=== PATIENT | male | born 1955 | race Caucasian/White ===

== ENCOUNTER 2017-01-07 02:59 | Observation (INO) | payer OTHER ==
--- NOTE | ~2017-01-07 | HP ---
History And Physical [place] [id number] [facility] [place]. [address] NAME: DUSTY SMITH : 59 STATUS : ADM Brian PAT#: [id number] AGE: 61 ADM/REG DATE : 01/07/17 MR#: [id number] REPORT SERV DATE: 01/07/17 DICTATED BY: MELISSA BERG DATE: 01/07/17 REPORT STATUS : Draft TRANSCRIBED BY: MODBernabe DATE: 01/07/17 DATE OF ADMISSION: 01/07/2017 CHIEF COMPLAINT: Exertional chest pain. HISTORY OF PRESENT ILLNESS: A very pleasant 61-year-old white male with no known history of CAD, presents to our facility complaining of two months of worsening exertional chest pain such as walking approximately 200 yards. He thought his symptoms were initially his back and an MRI has been performed in [place], [place] and it is negative per the patient's report. He states the chest pain occurs more frequently with less activity with associated shortness of breath and diaphoresis. He denies any nausea, dizziness, or belching. On January 06, around 2300 hours, he again experienced the chest pain at this time at rest that radiated towards his back and he describes the chest pain as a pressure tightness and ache. At its most intense, two weeks ago, his chest pain was a 9/10. At the time of interview in the [facility], he rates it a 2/10. The episodes last approximately 30 minutes in duration and resolve with rest. The patient denies any personal history of myocardial infarction, stroke, DVT, or pulmonary embolus. The patient denies any recent fever or chills. Denies palpitations. No syncopal episodes. Denies PND or orthopnea. Of note, the patient was previously on pravastatin several months or years ago and it was discontinued seemingly for elevated liver enzymes. The patient denies any bleeding issues and no planned upcoming surgeries, but does have an upcoming colonoscopy. PAST MEDICAL HISTORY: 1. Previously dyslipidemic, now off pravastatin questionably secondary to elevated LFTs. 2. Denies hypertension or diabetes. PAST SURGICAL HISTORY: Right knee surgery and left shoulder surgery. SOCIAL HISTORY: He is with three children. 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 He does not have a structured exercise routine. He denies tobacco or illicits. He consumes two drinks twice weekly. FAMILY HISTORY: No embolic events reported in first-degree relatives. Father of cancer at 78. Mother with valve repair at the age of 85. REVIEW OF SYSTEMS: A fourteen-point review of systems performed, significant for HPI including snores per report with no formal sleep study. Otherwise, complete review of systems obtained and negative. ALLERGIES: NO KNOWN DRUG ALLERGIES. History And Physical [address] [address] NAME: DUSTY SMITH : 59 STATUS : ADM Brian PAT#: [id number] AGE: 61 ADM/REG DATE : 01/07/17 MR#: [id number] REPORT SERV DATE: 01/07/17 DICTATED BY: MELISSA BERG DATE: 01/07/17 REPORT STATUS : Draft TRANSCRIBED BY: SAM DATE: 01/07/17 HOME MEDICINES: Aspirin 325, inconsistently, Visine p.r.n., Advil p.r.n., Centrum or multivitamin daily, Aleve p.r.n., fish oil 1000 mg daily, CoQ10 daily, and vitamin D daily. PHYSICAL EXAMINATION: VITAL SIGNS: Bilateral blood pressures on arrival, right 147/92, left 152/98, this morning 146/92, pulse 76, respirations 16, temperature 97.4, O2 saturation 95% on room air. Height 5 feet 11 inches, weight 228 pounds. BMI of 32. GENERAL: Cooperative, in no apparent distress. HEENT: Pupils 2 mm, sclera nonicteric. Nares patent. Moist mucous membranes. No xanthelasma. NECK: Trachea midline, no thyromegaly. No JVD. No bruits. LYMPH: No cervical lymphadenopathy. No supraclavicular lymphadenopathy. RESPIRATORY: Unlabored respirations. Breath sounds clear bilaterally to posterior auscultation. No wheezes or rhonchi. CARDIOVASCULAR: Regular rate. No murmur, rub or gallop appreciated. EXTREMITIES: Without edema. Pulses 2+ bilaterally. ABDOMEN: Soft, nontender, nondistended, normal bowel sounds auscultated throughout. No organomegaly. SKIN: Warm, dry extremities. No pallor, or cyanosis. PSYCHIATRIC: Appropriate affect. Alert, oriented x3. LABORATORY DATA: Troponin 0.30 and 0.28, potassium 4.0, BUN 20, creatinine 1.10, glucose 104, magnesium 2.1. WBC 10.1, hemoglobin 17.2, hematocrit 47.7, and platelet count 321,000. D-dimer 0.40. EKG, sinus rhythm. ASSESSMENT AND PLAN: 1. Exertional chest pain. The patient has been observed in the CPOU with mildly elevated troponins of 0.30 and 0.28 with a low-level chest pain rated at 2/10. We will add Nitro paste and hold the patient n.p.o. for now. We will discuss with rounding physician whether any cardiac testing is warranted given his credible or his compelling history and mildly elevated troponins versus cardiac cath today. Further recommendations forthcoming. 2. Elevated blood pressure. We will monitor blood pressure. Continue addition of antihypertensive at discharge as warranted. 3. Unknown cholesterol status. We will check a fasting lipid panel and a liver panel. 4. Snores. Recommend outpatient sleep study for sleep apnea. ЮЛИЯ/SAM Melissa Berg, MSN, SPECIAL TECH[employer]ICAL OPERATIONS OFFICER-BC History And Physical [address] [address] NAME: DUSTY SMITH : 59 STATUS : ADM Brian PAT#: [id number] AGE: 61 ADM/REG DATE : 01/07/17 MR#: [id number] REPORT SERV DATE: 01/07/17 DICTATED BY: MELISSA BERG DATE: 01/07/17 REPORT STATUS : Draft TRANSCRIBED BY: MODL DATE: 01/07/17 / [id number] CC: Melissa Berg, MSN, SPECIAL TECHNICAL OPERATIONS OFFICER-BC TERESSA DUARTE
[2017-01-07 01:50] LABS: BASOPHILS 0.5 %; BASOPHILS ABSOLUTE 0.05 10/3/uL (0.0-0.16); EOSINOPHILS 2.9 %; EOSINOPHILS ABSOLUTE 0.29 10/3/uL (0.0-0.53); HEMATOCRIT 47.7 % (40.0-51.0); HEMOGLOBIN 17.2 g/dL (13.6-17.8); IMMATURE GRANULOCYTES 0.3 %; IMMATURE GRANULOCYTES ABSOLUTE 0.03 10/3/uL (0.0-0.11); LYMPHOCYTES 24.7 %; LYMPHOCYTES ABSOLUTE 2.48 10/3/uL (0.67-4.30); MEAN CORPUS HGB CONC 36.1 g/dL (32.0-36.0); MEAN CORPUSCULAR HEMOGLOB 32.5 pg (26.0-34.0); MEAN PLATELET VOLUME 9.9 fL (9.2-13.0); MONOCYTES 13.6 %; MONOCYTES ABSOLUTE 1.37 10/3/uL (0.21-1.20); NEUTROPHILS ABSOLUTE 5.83 10/3/uL (2.02-8.40); PLATELET COUNT 321 10/3/uL (150-400); RBC DISTRIBUTION WIDTH 12.4 % (12.0-16.0); WHITE BLOOD CELLS 10.1 10/3/uL (4.5-10.5)
[2017-01-07 01:53] LABS: ER CBC TAT 0 Hrs 08 MinsNP; MANUAL DIFF NO %
[2017-01-07 02:06] LABS: PARTIAL THROMBO TIME 27.5 SEC (22.5-37.2)
[2017-01-07 02:14] LABS: BUN (BLOOD UREA NITROGEN) 20 MG/DL (6-23); CALCIUM, SERUM 8.9 MG/DL (8.5-10.4); CHLORIDE, SERUM 105 MMOL/L (96-112); CO2 (CARBON DIOXIDE) 25 MMOL/L (24-34); GFR AFRICAN AMERICAN 85 ML/MIN (>=60); GFR NON AFRICAN AMERICAN 73 ML/MIN (>=60); GLUCOSE, SERUM 104 MG/DL (60-99); SODIUM, SERUM 140 MMOL/L (135-148)
[2017-01-07 02:16] LABS: CHEST PAIN PROFILE TAT 0 Hrs 31 Mins
[2017-01-07] MEDS ORDERED: CENTRUM PO (04:05)
[2017-01-07] MEDS ORDERED: VITAMIN D1000 UNI1 PO (04:07)
[2017-01-07] MEDS ORDERED: FISH-EPA1000 MG PO (04:07)
[2017-01-07] MEDS ORDERED: COQ-10 PO (04:09)
[2017-01-07] MEDS ORDERED: VITAMIN D PO (04:10)
[2017-01-07] MEDS ORDERED: ASAB PO (04:11)
[2017-01-07] MEDS ORDERED: ADVIL PO (04:12)
[2017-01-07] MEDS ORDERED: ALEVE220 MG PO (04:12)
[2017-01-07] MEDS ORDERED: VISINE TEARS15 ML OPH (04:13)
[2017-01-07 08:16] LABS: TROPONIN I 0.28 NG/ML (<0.05)
[2017-01-07 10:50] LABS: ALBUMIN 3.5 G/DL (3.5-5.0); ALKALINE PHOSPHATASE 105 U/L (45-117); CHOLESTEROL 170 MG/DL (< 200); HDL CHOLESTEROL 42 MG/DL (> 39); LDL CHOLESTEROL 107 MG/DL (< 130); NON-HDL CHOLESTEROL 128 MG/DL (< 160); SGOT(AST) 25 U/L (5-40); SGPT(ALT) 50 U/L (5-65); TOTAL BILIRUBIN 0.4 MG/DL (0-1.2); TOTAL PROTEIN 6.7 G/DL (6.0-8.5); TRIGLYCERIDE 105 MG/DL (< 150)
[2017-01-07 10:54] LABS: DIRECT BILIRUBIN < 0.1 MG/DL (0.0-0.4); INDIRECT BILIRUBIN(NOT ORDER) 0.3 MG/DL (0.1-0.9)
[2017-01-08 05:43] LABS: BASOPHILS 0.5 %; BASOPHILS ABSOLUTE 0.04 10/3/uL (0.0-0.16); EOSINOPHILS 2.7 %; EOSINOPHILS ABSOLUTE 0.23 10/3/uL (0.0-0.53); HEMATOCRIT 45.8 % (40.0-51.0); HEMOGLOBIN 16.2 g/dL (13.6-17.8); IMMATURE GRANULOCYTES 0.2 %; IMMATURE GRANULOCYTES ABSOLUTE 0.02 10/3/uL (0.0-0.11); LYMPHOCYTES 28.5 %; LYMPHOCYTES ABSOLUTE 2.42 10/3/uL (0.67-4.30); MEAN CORPUS HGB CONC 35.4 g/dL (32.0-36.0); MEAN CORPUSCULAR HEMOGLOB 31.8 pg (26.0-34.0); MEAN PLATELET VOLUME 9.9 fL (9.2-13.0); MONOCYTES ABSOLUTE 1.02 10/3/uL (0.21-1.20); NEUTROPHILS 56.1 %; NEUTROPHILS ABSOLUTE 4.75 10/3/uL (2.02-8.40); PLATELET COUNT 302 10/3/uL (150-400); RBC DISTRIBUTION WIDTH 12.6 % (12.0-16.0); RED CELL COUNT 5.09 10/6/uL (4.7-6.1); WHITE BLOOD CELLS 8.5 10/3/uL (4.5-10.5)
[2017-01-08 05:48] LABS: MANUAL DIFF NO %
[2017-01-08 05:56] LABS: BUN (BLOOD UREA NITROGEN) 17 MG/DL (6-23); CALCIUM, SERUM 8.7 MG/DL (8.5-10.4); CHLORIDE, SERUM 108 MMOL/L (96-112); CO2 (CARBON DIOXIDE) 25 MMOL/L (24-34); CREATININE 0.91 MG/DL (0.70-1.30); GFR AFRICAN AMERICAN 107 ML/MIN (>=60); GFR NON AFRICAN AMERICAN 92 ML/MIN (>=60); GLUCOSE, SERUM 93 MG/DL (60-99); POTASSIUM, SERUM 4.1 MMOL/L (3.5-5.3); SODIUM, SERUM 142 MMOL/L (135-148)
[2017-01-08] MEDS ORDERED: LIPITOR40 PO (08:36)
[2017-01-08] MEDS ORDERED: EFFIENT10 PO (08:38)
[2017-01-08] MEDS ORDERED: LOP25 PO (08:38)
[2017-01-08] MEDS ORDERED: NITROSTAT0.4 MG SL (08:38)
== END 2017-01-08 10:15 | disposition home or self-care (01) ==
LOC: ER 02:59 → CDU1 03:49 → CDU2 04:44 → SSU1 16:19
PROVIDERS: Clinical Nurse Specialist; Internal Medicine Cardiovascular Disease; Specialist
PROC: 4A023N7 Measurement of Cardiac Sampling and Pressure, Left Heart, Percutaneous Approach (ICD-10-PCS; principal; 2017-01-07)
PROC: B215YZZ Fluoroscopy of Left Heart using Other Contrast (ICD-10-PCS; 2017-01-07)
PROC: 027034Z Dilation of Coronary Artery, One Artery with Drug-eluting Intraluminal Device, Percutaneous Approach (ICD-10-PCS; 2017-01-07)
DX: I21.4 Non-ST elevation (NSTEMI) myocardial infarction (principal); I25.119 Atherosclerotic heart disease of native coronary artery with unspecified angina pectoris; I10 Essential (primary) hypertension; R06.83 Snoring; E78.5 Hyperlipidemia, unspecified; Z98.890 Other specified postprocedural states; Z79.82 Long term (current) use of aspirin; Z79.899 Other long term (current) drug therapy
CPT/HCPCS: 71020; 80048; 80061; 80076; 83735; 84484; 85025; 85347; 85379; 85610; 85730; 92921; 93005; 93458; 99152; 99153; 99285; A9270-GY; C1725; C1769; C1874; C1887; C1894; C9600; G0378; J0583; J2250; J3010; Q9967

== ENCOUNTER 2017-01-12 20:57 | Emergency (ER) | payer OTHER ==
[~2017-01-12 20:57] MED LIST: ADVIL PO; ALEVE220 MG PO; ASAB PO; CENTRUM PO; COQ-10 PO; EFFIENT10 PO; FISH-EPA1000 MG PO; LIPITOR40 PO; LOP25 PO; NITROSTAT0.4 MG SL; VISINE TEARS15 ML OPH; VITAMIN D PO; VITAMIN D1000 UNI1 PO
[2017-01-12 21:07] LABS: BASOPHILS 0.3 %; BASOPHILS ABSOLUTE 0.03 10/3/uL (0.0-0.16); EOSINOPHILS 2.1 %; ER CBC TAT 0 Hrs 07 Mins; HEMATOCRIT 46.6 % (40.0-51.0); IMMATURE GRANULOCYTES 0.1 %; IMMATURE GRANULOCYTES ABSOLUTE 0.01 10/3/uL (0.0-0.11); LYMPHOCYTES 23.7 %; LYMPHOCYTES ABSOLUTE 2.28 10/3/uL (0.67-4.30); MEAN CORPUS HGB CONC 36.5 g/dL (32.0-36.0); MEAN CORPUSCULAR HEMOGLOB 31.9 pg (26.0-34.0); MEAN CORPUSCULAR VOLUME 87.4 fL (80-100); MONOCYTES 10.4 %; NEUTROPHILS 63.4 %; PLATELET COUNT 353 10/3/uL (150-400); RBC DISTRIBUTION WIDTH 12.5 % (12.0-16.0); RED CELL COUNT 5.33 10/6/uL (4.7-6.1); WHITE BLOOD CELLS 9.6 10/3/uL (4.5-10.5)
[2017-01-12 21:08] LABS: MANUAL DIFF NO %
[2017-01-12 21:12] LABS: INTERNATIONAL NORMAL RATI 1.1 UNITS (-); PARTIAL THROMBO TIME 26.9 SEC (22.5-37.2); PROTIME (NOT ORD) 14.4 SEC (12.0-14.5)
[2017-01-12 21:26] LABS: BUN (BLOOD UREA NITROGEN) 17 MG/DL (6-23); CALCIUM, SERUM 8.8 MG/DL (8.5-10.4); CHEST PAIN PROFILE TAT 0 Hrs 26 Mins; CHLORIDE, SERUM 104 MMOL/L (96-112); CO2 (CARBON DIOXIDE) 25 MMOL/L (24-34); CREATININE 1.05 MG/DL (0.70-1.30); GFR AFRICAN AMERICAN 90 ML/MIN (>=60); GFR NON AFRICAN AMERICAN 77 ML/MIN (>=60); GLUCOSE, SERUM 123 MG/DL (60-99); POTASSIUM, SERUM 3.9 MMOL/L (3.5-5.3); SODIUM, SERUM 138 MMOL/L (135-148); TROPONIN I <0.02 NG/ML (<0.05)
== END 2017-01-12 23:26 | disposition left against medical advice (07) ==
LOC: ER 20:57
PROVIDERS: Emergency Medicine
DX: Z53.21 Procedure and treatment not carried out due to patient leaving prior to being seen by health care provider (principal)
CPT/HCPCS: 80048; 83735; 84484; 85025; 85610; 85730; 93005